=== PATIENT | male | born 1945 | race Caucasian/White ===

== ENCOUNTER 2021-08-23 10:31 | Observation (INO) ==
[2021-08-23 11:03] LABS: Basophils # 0.1 K/mcL (0.0-0.2); Basophils % 0.9 %; Eosinophils # 0.1 K/mcL (0.0-0.6); Hematocrit 35.6 % (37.5-50.1); Hemoglobin 10.8 g/dL (12.9-16.9); Immature Granulocytes % 0.3 % (0-4); Lymphocytes # 1.3 K/mcL (0.6-4.6); Lymphocytes % 22.4 %; Mean Corpuscular HGB Conc 30.3 g/dL (31.6-35.5); Mean Corpuscular Hemoglobin 25.2 pg (28.0-33.3); Mean Corpuscular Volume 83.2 fL (83.0-100.0); Monocytes # 0.5 K/mcL (0.0-1.3); Monocytes % 8.6 %; Neutrophils # 3.8 K/mcL (1.6-8.9); Platelet Count 227 K/mcL (140-400); Red Blood Count 4.28 M/mcL (4.19-5.50); Segmented Neutrophils % 66.8 %; White Blood Count 5.7 K/mcL (4.3-11.1)
[2021-08-23 11:13] LABS: Prothrombin Time 11.4 Seconds (9.4-12.1)
[2021-08-23 11:15] LABS: Activated Partial Thrombo Time 29.8 Seconds (26.0-36.0)
[2021-08-23 11:20] LABS: Alanine Aminotransferase 10 Units/L (7-52); Albumin 3.5 g/dL (3.5-5.7); Albumin/Globulin Ratio 1.3 (1.1-2.2); Alkaline Phosphatase 88 Units/L (34-104); Aspartate Amino Transferase 19 Units/L (13-39); BUN/Creatinine Ratio 14 (6-26); Bilirubin,Total 0.4 mg/dL (0.3-1.0); Blood Urea Nitrogen 17 mg/dL (8-23); Carbon Dioxide 31 mEq/L (23-29); Chloride 103 mEq/L (98-107); Globulin 2.7 g/dL (2.4-3.5); Glucose 117 mg/dL (70-105); Osmolality,Calculated 291 (280-300); Potassium 3.3 mEq/L (3.5-5.1); Sodium 139 mEq/L (136-145); Total Protein 6.2 g/dL (6.4-8.9); eGFR For African Americans > 60 (> 60); eGFR For Non-African Americans 58 (> 60)
[2021-08-23 11:24] LABS: Troponin I < 0.03 ng/mL (< 0.04)
[2021-08-23] MEDS ORDERED: Naloxone 0.4 MG/ML INJ IVP PRN (13:42)
[2021-08-23] MEDS ORDERED: Perflutren Lipid Microsphere 1.3 ML in 0.9 % Sodium Chloride 8.7 ML IVP PRN (17:19)
[2021-08-23] MEDS: Gabapentin 300 MG CAPSULE PO SCH (20:11)
[2021-08-23] MEDS: valACYclovir 500 MG TABLET PO SCH (20:12)
[2021-08-24] MEDS ORDERED: *HR* Enoxaparin 40 MG/0.4 ML SYRINGE SQ SCH (06:00)
[2021-08-24 06:44] VITALS: RESP 18
[2021-08-24 07:37] LABS: Basophils % 0.5 %; Eosinophils # 0.1 K/mcL (0.0-0.6); Eosinophils % 2.3 %; Hematocrit 34.3 % (37.5-50.1); Hemoglobin 10.3 g/dL (12.9-16.9); Immature Granulocytes % 0.2 % (0-4); Lymphocytes # 2.1 K/mcL (0.6-4.6); Lymphocytes % 33.9 %; Mean Corpuscular Hemoglobin 24.9 pg (28.0-33.3); Mean Corpuscular Volume 82.9 fL (83.0-100.0); Monocytes # 0.6 K/mcL (0.0-1.3); Monocytes % 9.5 %; Neutrophils # 3.3 K/mcL (1.6-8.9); Platelet Count 223 K/mcL (140-400); Red Blood Count 4.14 M/mcL (4.19-5.50); Red Cell Distribution Width 15.9 % (11.5-14.5); Segmented Neutrophils % 53.6 %; White Blood Count 6.1 K/mcL (4.3-11.1)
[2021-08-24 07:56] LABS: BUN/Creatinine Ratio 15 (6-26); Blood Urea Nitrogen 18 mg/dL (8-23); Carbon Dioxide 31 mEq/L (23-29); Chloride 104 mEq/L (98-107); Glucose 91 mg/dL (70-105); Magnesium 1.7 mg/dL (1.6-2.6); Osmolality,Calculated 291 (280-300); Potassium 3.6 mEq/L (3.5-5.1); Sodium 140 mEq/L (136-145); eGFR For African Americans > 60 (> 60); eGFR For Non-African Americans > 60 (> 60)
[2021-08-24] MEDS: Gabapentin 300 MG CAPSULE PO SCH (08:15)
[2021-08-24] MEDS: valACYclovir 500 MG TABLET PO SCH (08:16)
[2021-08-24] MEDS ORDERED: lisinopriL 20 MG TABLET PO SCH (09:00)
[2021-08-24] MEDS ORDERED: amLODIPine 5 MG TABLET PO SCH (09:00)
[2021-08-24 10:57] VITALS: TEMP 98.2; O2SAT 96
[2021-08-24 12:04] VITALS: BP 104/58; PULSE 89
== END 2021-08-24 14:07 | disposition home or self-care (01) ==
LOC: INPPIK 10:31 → EMEROOPIK 10:31 → INPPIK 15:09
PROVIDERS: ADMIT Internal Medicine; ATTEND Internal Medicine